=== PATIENT | male | born 1945 | race Caucasian/White ===

== ENCOUNTER 2021-12-15 08:30 | Day surgery (SDC) | payer MEDICARE ==
[2021-12-08 11:36] LABS: BASOPHILS % (AUTO) 0.5 % (0-1); EOSINOPHILS % (AUTO) 0.3 % (0-6); LYMPHOCYTES # (AUTO) 1.1 X10'3 (1.1-4.8); LYMPHOCYTES % (AUTO) 22.4 % (21-51); MEAN CORPUSCULAR HEMOGLOBIN 30.3 PG (27.0-31.0); MEAN CORPUSCULAR HGB CONC 33.2 g/dL (33.0-36.5); MEAN CORPUSCULAR VOLUME 91.4 FL (78-98); MEAN PLATELET VOLUME 7.9 FL (7.4-10.4); MONOCYTES # (AUTO) 0.3 X10'3 (0-0.9); MONOCYTES % (AUTO) 6.2 % (2-12); NEUTROPHILS # (AUTO) 3.4 X10'3 (1.8-7.7); NEUTROPHILS % (AUTO) 70.6 % (42-75); PRE OP HEMATOCRIT 46.5 % (42.0-52.0); PRE OP HEMOGLOBIN 15.4 g/dL (14.0-17.9); PRE OP PLATELET COUNT 162 X10'3 (140-440); RED BLOOD COUNT 5.08 X10'6 (4.70-6.10); RED CELL DISTRIBUTION WIDTH 14.2 % (11.5-14.5)
[2021-12-08 11:50] LABS: ALBUMIN 3.5 G/DL (3.4-5.0); ALBUMIN/GLOBULIN RATIO 0.9 (1.1-1.5); ALKALINE PHOSPHATASE 53 IU/L (46-116); BLOOD UREA NITROGEN 13 MG/DL (7-18); BUN/CREATININE RATIO 12.9 (5.4-32.0); CALCIUM 8.9 MG/DL (8.5-10.1); CHLORIDE 104 MMOL/L (99-107); CREATININE 1.01 MG/DL (0.60-1.10); PRE OP ALT 31 U/L (30-65); PRE OP ANION GAP 6 (8-16); PRE OP AST 19 U/L (10-37); PRE OP BILIRUB, TOTAL 0.4 MG/DL (0.0-1.0); PRE OP GLUCOSE 94 MG/DL (70-104); PRE OP SODIUM 139 MMOL/L (135-145); TOTAL CARBON DIOXIDE 28.9 MMOL/L (24-32); TOTAL PROTEIN 7.5 G/DL (6.4-8.2); eGFR 72 ML/MIN
[2021-12-15] VITALS (18 sets, daily range): BP systolic 113–139; BP diastolic 68–82
[~2021-12-15] VITALS: Ht 172.7 cm; Wt 79.1 kg
[~2021-12-15 08:30] MED LIST: GLUC-95 PO; MAGNESIUM PO; MULT-1085 PO; OMEG1CAP13 PO; UBIQ100C2 PO; VIT-29 PO; ceFAZolin inj. 2,000 MG in dextrose 5%-water 100 ML IV ONE; famotidine 20mg tablet PO ONE; ringers solution, lacted 1,000 ML IV SCH
[2021-12-15] MEDS ORDERED: tobramycin 40mg/ml inj ONE (10:07)
[2021-12-15] MEDS ORDERED: LIDOcaine 1% W/epiNEPHrine 1:100,000 20ml vial ONE (10:07)
[2021-12-15] MEDS ORDERED: BUPIVAcaine/PF 2.5 mg/ml (0.25%) 30ml vial ONE (10:08)
[2021-12-15] MEDS ORDERED: labetalol 20mg/4ml (5mg/ml) syringe IV PRN (10:15)
[2021-12-15] MEDS ORDERED: morphine 2 MG/ML inj. syringe IV PRN (10:15)
[2021-12-15] MEDS ORDERED: ondansetron/PF 4mg/2ml inj IV PRN (10:15)
[2021-12-15] MEDS ORDERED: meperidine/PF 25mg/ml syringe IV PRN ×3 (10:15)
[2021-12-15] MEDS ORDERED: ketorolac tromethamine 15mg/ml inj. IV ONE (10:15)
[2021-12-15] MEDS ORDERED: ringers solution, lacted 1,000 ML IV SCH (10:15)
[2021-12-15] MEDS ORDERED: morphine 4 MG/ML inj SYRINge IV PRN (10:15)
[2021-12-15] MEDS ORDERED: hydrALAZINE 20mg/ml inj. IV PRN (10:15)
[2021-12-15] MEDS ORDERED: fentaNYL /PF 50mcg/ml 5ml ampule ONE (10:23)
[2021-12-15] MEDS ORDERED: dexamethasone sod phosphate 4mg/ml inj. ONE (10:44)
[2021-12-15] MEDS ORDERED: rocuronium 10mg/ml inj IV ONE (10:44)
[2021-12-15] MEDS ORDERED: LIDOcaine 2% (20mg/ml) 5ml vial ONE (10:44)
[2021-12-15] MEDS ORDERED: neostigmine methylsulfate 1 MG/ML 10ml vial ONE (10:44)
[2021-12-15] MEDS ORDERED: propofol inj 20 ML IV ONE (10:44)
[2021-12-15] MEDS ORDERED: ondansetron/PF 4mg/2ml inj ONE (10:44)
[2021-12-15] MEDS ORDERED: morphine 4 MG/ML inj SYRINge ONE (12:57)
[2021-12-15] MEDS ORDERED: glycopyrrolate 0.2mg/ml inj ONE (13:28)
--- NOTE | 2021-12-15 13:38 | NUR ---
Received from OR via [facility], accompanied by AnesthesiologistDR JONES and report given by Anesthesiolgist. PT IS SLEEPY AND HAS AN ORAL AIRWAY WITH 10L O2 TO MASK. PT PLACED ON BEDSIDE MONITOR, VSS. PT IS IN SR WITH RATE IN 70'S. PT IS TOLERATING WELL WITH O2 SAT> 95%. WILL TITRATE O2 DOWN PT TOLERATES AND REMOVE ORAL AIRWAY ONCE PT IS ALIITLE MORE AWAKE. PT DOES MOVE HEAD SIDE TO SIDE BUT IS NOT OPENING EYES TO VERBAL STIMULI. PT HAS 3 LAP-SITES TO MID ABD, ALL DRSGS ARE CDI. PT HAS 20G PIV TO LT HAND WITH LR INFUSING AT 100ML/HR. PT IS RESTING COMFORTABLY AT THIS TIME. WILL CONTINUE TO ASSESS FOR PAIN AT PT WAKES UP.
[2021-12-15] MEDS: proCHLORperazine 10 MG/2 ml inj IV PRN ×2 (14:11→14:34)
--- NOTE | 2021-12-15 14:35 | NUR ---
PT HAS HAD PERSISTENT NAUSEA SINCE WAKING UP FROM ANESTHESIA, ZOFRAN GIVEN FIRST ORDERED WHICH WAS INEFFECTIVE. 1ST DOSE OF PROCHLORPERAZINE GIVEN AND PT DID STATE SOME RELIEF. ADMINISTERING THE 2ND D/T PT STILL FEELING SLIGHTLY NAUSEOUS. WILL CONTINUE TO ASSESS.
--- NOTE | 2021-12-15 15:35 | NUR ---
ZOFRAN AND COMPAZINE HAVE BEEN EFFECTIVE. PT DENIES NAUSEA AND STATES HE FEELS BETTER. WILL CONTINUE TO ASSESS.
--- NOTE | 2021-12-15 16:20 | NUR ---
ALL DISCHARGE CRITERIA HAS BEEN MET. VSS, PAIN AT A TOLERABLE LEVEL. DR FARMER WAS OK WITH PT NOT VOIDING BEFORE DISCHARGE HOME D/T CATHETER IN PLACE IN OR. BLADDER SCAN PERFORMED AND 41ML FOUN DIN BLADDER. PT SENT HOME WITH URINAL AND BLUE CHUCKS IN CASE THERE IS A NEED TO VOID DURING RIDE HOME TO [place]. PT IS ABLE TO SAFELY AMBULATE AND TRANSFER SELF. IV TAKEN OUT WITHOUT ANY COMPLICATIONS. ALL DISCHARGE INSTRUCTIONS COVERED WITH PATIENT AND ALL QUESTIONS ANSWERED. PATIENT TAKEN OUT VIA WHEELCHAIR TO PERSONAL VEHICLE WHERE SIGNIFICANT OTHER DROVE PATIENT HOME.
== END 2021-12-15 16:01 | disposition home or self-care (01) ==
LOC: PAS 08:30
PROVIDERS: ATTEND Colon & Rectal Surgery
DX: K40.30 Unilateral inguinal hernia, with obstruction, without gangrene, not specified as recurrent (principal); K42.0 Umbilical hernia with obstruction, without gangrene; K66.0 Peritoneal adhesions (postprocedural) (postinfection); Z79.899 Other long term (current) drug therapy; Z98.890 Other specified postprocedural states; Z87.891 Personal history of nicotine dependence; Z85.46 Personal history of malignant neoplasm of prostate
CPT/HCPCS: 36415; 49587; 49650; 80053; 82948; 85025; 87811; 93005; A6258; C1758; C1781; J0690; J0780; J1100; J2175; J2270; J2405; J2704; J2710; J3010; J3260; J3490; J7030; J7060; J7120; Z7506; Z7508; Z7512; A4215; A4615; A4618; A6449; A7000